=== PATIENT | male | born 1945 | race Caucasian/White ===

== ENCOUNTER 2019-12-16 21:03 | Emergency (ER) | payer MEDICARE, SELFPAY ==
[2019-12-16 21:07] VITALS: BP 152/82; PULSE 92; RESP 18; TEMP 36.7; O2SAT 99
--- NOTE | 2019-12-16 22:01 | ED.SKABFB ---
HPI - Skin/Abscess/Foreign Bdy General Chief complaint: Skin/Abscess/Foreign Body Stated complaint: finger injury Time Seen by Provider: 12/16/19 21:45 Source: patient Mode of arrival: ambulatory Limitations: no limitations History of Present Illness HPI narrative: Patient is a 74-year-old male who presents to the emergency department for a laceration to his left index finger. Patient was using a table saw and sustained a laceration across the dorsal aspect of the left index finger along the region of the distal phalanx and across his nail. Patient cleaned the area with peroxide and applied pressure. He still has some minor bleeding. Tetanus shot is not up-to-date. Patient denies any other injuries or complaints at this time. Patient does report port prior injury with scarring to the dorsal aspect of distal fingers on the left hand many years ago. complaint: laceration Onset (ago): hour(s) Tetanus up to date: no Associated symptoms: denies other symptoms Treatments prior to arrival: bandages Related Data Home Medications Medication Instructions Recorded Confirmed multivitamin 1 tablet PO DAILY 07/19/19 08/16/19 cholecalciferol (vitamin D3) 25 50 mcg PO DAILY tablet 08/16/19 08/16/19 mcg (1,000 unit) tablet insulin syringe-needle U-100 0.3 #10 each 08/16/19 08/16/19 mL 31 gauge x /16 omega-3 fatty acids 1,000 mg 1,000 mg PO DAILY 08/16/19 08/16/19 capsule insulin human U-100 NPH-regulr 20 unit SUB-Q BID 10/26/19 70-30 mix 100 unit/mL subcutaneous susp Allergies Allergy/AdvReac Type Severity Reaction Status Date / Time codeine AdvReac Mild STOMACH Verified 05/31/19 09:11 UPSET Review of Systems Review of Systems: All systems reviewed & are unremarkable except as noted in HPI and below PMFSH Past Medical History Medical History (Updated 12/16/19 @ 22:03 by Hilary Parikh MD) Essential hypertension Hypothyroidism, acquired Pure hypercholesterolemia, unspecified Type 2 diabetes mellitus with hyperglycemia, with long-term current use of insulin Surgical History Surgical History (Updated 12/16/19 @ 22:04 by Hilary Parikh MD) History of colonoscopy History of hernia repair Status post trigger finger release Social History Social History Smoking status: Former smoker Second hand tobacco smoke exposure: No Smoking end date: 08/10/95 Alcohol intake: current Gender identity (if verbalized by the patient): Male Exam Const: General: cooperative, no acute distress and alert Nutritional Appearance: well nourished Orientation/consciousness: patient oriented x3 Limitations: no limitations HENMT: Mouth: Yes lip normal and Yes moist mucous membranes Resp: Effort & Inspection: normal respiratory effort Skin: General skin exam: normal color Neuro: General: patient oriented x3 Cognition (Neuro): normal cognition Speech: normal speech Extrem: General: full ROM and no clubbing, cyanosis or edema Left upper extremity: hand normal ROM of fingers and laceration 2nd digit dorsal aspect distal Details: avulsion (Skin and portion of nail missing from grinding injury), actively bleeding (Mild oozing) and superficial Psych: Mental Status: mental status grossly normal Affect: normal affect Attitude: cooperative Course Course Emergency Course: Patient with skin and nail tissue loss from grinding injury of table saw. No repairable injury at this time. Tetanus shot updated. Dressing applied. Patient advised to follow-up with primary care physician or hand surgeon for further care and close monitoring of his wound healing, especially with his history of diabetes Vital Signs Vital signs: Vital Signs Temperature 98.1 F 12/16/19 21:07 Pulse Rate 92 12/16/19 21:07 Respiratory Rate 18 12/16/19 21:07 Blood Pressure 152/82 H 12/16/19 21:07 Pulse Oximetry 99 12/16/19 21:07 Temperature 98.1 F 0
[2019-12-16] MEDS: TETANUS,DIPHTHERIA,AC PERTUSSIS ADULT (0.5 ML) BOOSTRIX IM (22:08)
== END 2019-12-16 22:34 | disposition home or self-care (01) ==
PROVIDERS: Emergency Provider Emergency Medicine; PCP Internal Medicine
DX: S61.311A Laceration without foreign body of left index finger with damage to nail, initial encounter (principal); Z23 Encounter for immunization; I10 Essential (primary) hypertension; E78.00 Pure hypercholesterolemia, unspecified; E03.9 Hypothyroidism, unspecified; E11.65 Type 2 diabetes mellitus with hyperglycemia; Z79.4 Long term (current) use of insulin; W31.2XXA Contact with powered woodworking and forming machines, initial encounter
CPT/HCPCS: 90471; 90715; 99282

== ENCOUNTER 2020-04-02 00:18 | Outpatient (CLI) | payer MEDICARE, SELFPAY ==
[2020-04-02 19:34] LABS: SARS-CoV-2 RNA PCR Negative
== END 2020-04-02 00:19 | disposition home or self-care (01) ==
LOC: ANHCOVIDDT 00:18
PROVIDERS: PCP Internal Medicine; Visit Provider Internal Medicine Gastroenterology
DX: Z01.812 Encounter for preprocedural laboratory examination (principal); Z20.828 Contact with and (suspected) exposure to other viral communicable diseases
CPT/HCPCS: 87635; C9803; U0003

== ENCOUNTER 2020-04-04 01:26 | Day surgery (SDC) | payer MEDICARE, SELFPAY ==
[2020-03-30 08:51] VITALS: BMI 25.9
--- NOTE | 2020-04-02 14:32 | WPDANESEPPF ---
Anes - Initial Pre Proc Eval Procedure: Operation Date: 04/04/20 07:30 Proposed Procedures p Screening Colonoscopy - Marck Lorenzo MD Date/Time: 04/02/20 14:32 Surgeon: Marck Lorenzo MD Pre Op Diagnosis: Neoplasm Screening Patient Data Age: 74 Gender: M Height: 1.78 m Weight: 81.8 kg Allergies Allergy/AdvReac Type Severity Reaction Status Date / Time codeine AdvReac Mild STOMACH Verified 04/04/20 06:23 UPSET Home Medications Medication Instructions Recorded Confirmed Type multivitamin 1 tablet PO DAILY 07/19/19 04/04/20 History blood sugar diagnostic #300 each 08/16/19 04/04/20 Rx omega-3 fatty acids 1,000 mg 1,000 mg PO DAILY 08/16/19 04/04/20 History capsule ascorbate calcium (vitamin C) 500 500 mg PO DAILY 12/20/19 04/04/20 History mg tablet mecobalamin (vitamin B12) 1,000 1,000 mcg PO DAILY 12/20/19 04/04/20 History mcg chewable tablet levothyroxine 150 mcg tablet 150 mcg PO DAILY 90 Days #90 tablet 03/05/20 04/04/20 Rx cholecalciferol (vitamin D3) 25 5,000 unit PO DAILY tablet 03/15/20 04/04/20 History mcg (1,000 unit) tablet empagliflozin 25 mg tablet 12.5 mg PO QAM tablet 03/15/20 04/04/20 History insulin human U-100 NPH-regulr 15 - 20 unit SUB-Q BID ml 03/15/20 04/04/20 History 70-30 mix 100 unit/mL subcutaneous susp insulin syringe-needle U-100 0.3 #10 each 03/15/20 04/04/20 History mL 31 gauge x 12/23 lovastatin 40 mg tablet 40 mg PO QPM 90 Days #90 tablet 03/15/20 04/04/20 Rx magnesium 250 mg tablet 250 mg PO DAILY 03/15/20 04/04/20 History metformin 500 mg tablet 500 mg PO BID 90 Days #180 tablet 03/15/20 04/04/20 Rx lisinopril 5 mg tablet 5 mg PO DAILY #90 tablet 03/27/20 04/04/20 Rx docusate sodium [Colace] 100 mg PO DAILY 03/30/20 04/04/20 History loratadine [Claritin] 10 mg PO DAILY 03/30/20 04/04/20 History Patient hx anesthesia problems: none Family hx anesthesia problems: none [facility] Social History Social History Smoking status: Former smoker Second hand tobacco smoke exposure: No Smoking end date: 08/10/95 Alcohol intake: current Substance use: never Gender identity (if verbalized by the patient): Male Anes - Eval Final PreProcedure Day of Procedure 04/02/20 14:32 Patient weight: overweight Heart: regular rate and rhythm Lungs: clear to auscultation and normal air movement Airway: Mallampati scale class II Neurological: alert and oriented Last oral intake: >/= 8 hours ASA classification: III Emergent: no Anesthetic plan: proceed Anesthesia type and monitoring: general GIVS and standard monitoring Informed Consent: The patient's anesthetic plan and its attendant risks and benefits were discussed with the patient/family/POA. Questions were solicited and answers provided to the satisfaction of the patient/family/POA.
[2020-04-04 06:20] VITALS: BP 120/60; PULSE 74; RESP 20; TEMP 36.4; O2SAT 100
[2020-04-04] MEDS: LACTATED RINGERS 1,000 ML 150 ML IV CONT (06:41)
[2020-04-04 06:46] LABS: Glucose Point of Care 135 (65-105)
--- NOTE | 2020-04-04 08:05 | WPDGICN ---
Assessment and Plan Assessment and plan (1) Encounter for screening colonoscopy: Code(s): Z12.11 - Encounter for screening for malignant neoplasm of colon Status: Acute Assessment and Plan: Patient appears to be at average risk. Plan is for screening colonoscopy at this time and 10 year intervals in the future. GI Consult Note Consult date/time: 04/04/20 08:05 HPI: Marvin Miller is a 74 year old male seen in evaluation at the Dr Valverde.Patient presents for screening colonoscopy. He states that his current weight appetite bowel movements are normal. He denies abdominal pain. He denies bleeding. His bowel habits are regular and normal. He states previous colonoscopy done years ago was unremarkable. Family history is noncontributory as well. Review of Systems Review of Systems: All systems reviewed & are unremarkable except as noted in HPI and below PMFSH Past Medical History Medical History Essential hypertension Hypothyroidism, acquired Pure hypercholesterolemia, unspecified Type 2 diabetes mellitus with hyperglycemia, with long-term current use of insulin Surgical History Surgical History History of colonoscopy History of hernia repair Status post trigger finger release Family History Family History Mother Patient's mother is Father Patient's father is Acute myocardial infarction Other Cerebrovascular accident Diabetes mellitus Family history of arthritis Family history of cardiovascular disease Family history of glaucoma Hypertension Social History Social History Smoking status: Former smoker Second hand tobacco smoke exposure: No Smoking end date: 08/10/95 Alcohol intake: current Substance use: never Gender identity (if verbalized by the patient): Male Meds Home Medications and Allergies Home Medications Medication Instructions Recorded Confirmed Type multivitamin 1 tablet PO DAILY 07/19/19 04/04/20 History blood sugar diagnostic #300 each 08/16/19 04/04/20 Rx omega-3 fatty acids 1,000 mg 1,000 mg PO DAILY 08/16/19 04/04/20 History capsule ascorbate calcium (vitamin C) 500 500 mg PO DAILY 12/20/19 04/04/20 History mg tablet mecobalamin (vitamin B12) 1,000 1,000 mcg PO DAILY 12/20/19 04/04/20 History mcg chewable tablet levothyroxine 150 mcg tablet 150 mcg PO DAILY 90 Days #90 tablet 03/05/20 04/04/20 Rx cholecalciferol (vitamin D3) 25 5,000 unit PO DAILY tablet 03/15/20 04/04/20 History mcg (1,000 unit) tablet empagliflozin 25 mg tablet 12.5 mg PO QAM tablet 03/15/20 04/04/20 History insulin human U-100 NPH-regulr 15 - 20 unit SUB-Q BID ml 03/15/20 04/04/20 History 70-30 mix 100 unit/mL subcutaneous susp insulin syringe-needle U-100 0.3 #10 each 03/15/20 04/04/20 History mL 31 gauge x 12/23 lovastatin 40 mg tablet 40 mg PO QPM 90 Days #90 tablet 03/15/20 04/04/20 Rx magnesium 250 mg tablet 250 mg PO DAILY 03/15/20 04/04/20 History metformin 500 mg tablet 500 mg PO BID 90 Days #180 tablet 03/15/20 04/04/20 Rx lisinopril 5 mg tablet 5 mg PO DAILY #90 tablet 03/27/20 04/04/20 Rx docusate sodium [Colace] 100 mg PO DAILY 03/30/20 04/04/20 History loratadine [Claritin] 10 mg PO DAILY 03/30/20 04/04/20 History Allergies Allergy/AdvReac Type Severity Reaction Status Date / Time codeine AdvReac Mild STOMACH Verified 04/04/20 06:23 UPSET Vital Signs Vital Signs - 24 hr 04/04/20 06:20 Temperature 97.5 F L Pulse Rate 74 Respiratory Rate 20 Blood Pressure 120/60 Pulse Oximetry 100 Exam Narrative: Exam Narrative: Physical exam reveals Vital Signs to be stable. HEENT exam unremarkable. Patient is anicteric. Lungs are clear to auscultation and percussion. Heart is wi
[2020-04-04 08:10] VITALS: BP 96/62; PULSE 80; RESP 16; O2SAT 100
[2020-04-04 08:20] VITALS: BP 106/63; PULSE 80; RESP 16; O2SAT 100
[2020-04-04 08:30] VITALS: BP 106/62; PULSE 75; RESP 16; O2SAT 100
[2020-04-04 08:32] LABS: Glucose Point of Care 135 (65-105)
== END 2020-04-04 08:48 | disposition home or self-care (01) ==
PROVIDERS: PCP Internal Medicine; Visit Provider Internal Medicine Gastroenterology
PROC: 0DJD8ZZ Inspection of Lower Intestinal Tract, Via Natural or Artificial Opening Endoscopic (ICD-10-PCS; CPT 45378; principal; 2020-04-04 07:30)
DX: Z12.11 Encounter for screening for malignant neoplasm of colon (principal); K64.8 Other hemorrhoids; E11.9 Type 2 diabetes mellitus without complications; E78.00 Pure hypercholesterolemia, unspecified; E03.8 Other specified hypothyroidism; I10 Essential (primary) hypertension; Z87.891 Personal history of nicotine dependence; Z82.3 Family history of stroke; Z82.49 Family history of ischemic heart disease and other diseases of the circulatory system; Z79.4 Long term (current) use of insulin; Z79.899 Other long term (current) drug therapy
CPT/HCPCS: 45378; J2704; J7120

== ENCOUNTER 2020-07-11 14:30 | Outpatient (RCR) | payer MEDICARE, SELFPAY ==
[2020-05-22 08:07] VITALS: BMI 26.1
[2020-05-22 08:12] VITALS: BMI 26.1
== END 2020-07-19 12:50 | disposition home or self-care (01) ==
LOC: ANHDMC 14:30
PROVIDERS: PCP Internal Medicine; Visit Provider Physician Assistant
DX: E11.65 Type 2 diabetes mellitus with hyperglycemia (principal); Z71.89 Other specified counseling; Z71.3 Dietary counseling and surveillance
CPT/HCPCS: 97802; G0108; G0109

== ENCOUNTER 2020-09-26 14:30 | Outpatient (RCR) | payer MEDICARE, SELFPAY ==
[2020-08-21 09:49] VITALS: BMI 25.9
[2020-08-21 09:50] VITALS: BMI 25.9
== END 2020-11-05 14:01 | disposition home or self-care (01) ==
LOC: ANHDMC 14:30
PROVIDERS: PCP Internal Medicine; Visit Provider Physician Assistant
DX: E11.65 Type 2 diabetes mellitus with hyperglycemia (principal); Z71.3 Dietary counseling and surveillance; Z71.89 Other specified counseling
CPT/HCPCS: 97803; G0109

== ENCOUNTER 2020-12-05 10:27 | Outpatient (RCR) | payer MEDICARE, SELFPAY | END 2020-12-11 16:39 | disposition home or self-care (01) | LOC: ANHDMC 10:27 | PROVIDERS: PCP Internal Medicine; Referring Provider Internal Medicine Endocrinology, Diabetes & Metabolism; Visit Provider Physician Assistant | DX: E11.65 Type 2 diabetes mellitus with hyperglycemia (principal); Z71.89 Other specified counseling | CPT/HCPCS: G0108 ==

== ENCOUNTER → 2021-06-12 02:40 | Outpatient (CLI) | payer MEDICARE, SELFPAY ==
[2021-06-12 17:30] LABS: SARS-CoV-2 RNA PCR Negative
== END ==
PROVIDERS: PCP Internal Medicine; Visit Provider Internal Medicine
DX: B34.9 Viral infection, unspecified (principal); Z20.822 Contact with and (suspected) exposure to COVID-19
CPT/HCPCS: C9803; U0003; U0005

== ENCOUNTER 2021-08-19 15:54 | Outpatient (CLI) | payer MEDICARE, SELFPAY ==
[2021-08-19 17:50] LABS: SARS-CoV-2 RNA PCR Positive (Negative)
== END 2021-08-19 15:55 | disposition home or self-care (01) ==
LOC: CHSLAB 15:56
PROVIDERS: PCP Internal Medicine; Visit Provider Physician Assistant
DX: U07.1 COVID-19 (principal); R68.89 Other general symptoms and signs
CPT/HCPCS: C9803; U0003; U0005

== ENCOUNTER 2022-02-20 12:24 | Emergency (ER) | payer MEDICARE, SELFPAY ==
--- NOTE | 2022-02-20 12:31 | ED.EAR ---
HPI - Ear Problem General Chief complaint: Ear Stated complaint: Foreign object in ear Time Seen by Provider: 02/20/22 12:32 Source: patient and RN notes reviewed Mode of arrival: ambulatory Limitations: no limitations History of Present Illness HPI Narrative: 76-year-old male presents to the [facility] with a piece of his hearing aid stuck in his ear. Related Data Home Medications Medication Instructions Recorded Confirmed multivitamin (Multiple Vitamins 1 tablet PO DAILY 07/19/19 02/20/22 tablet) omega-3 fatty acids 1,000 mg 1,000 mg PO DAILY 08/16/19 02/20/22 capsule (Fish Oil Concentrate) ascorbate calcium (vitamin C) 500 500 mg PO DAILY 12/20/19 02/20/22 mg tablet mecobalamin (vitamin B12) 1,000 1,000 mcg PO DAILY 12/20/19 02/20/22 mcg chewable tablet cholecalciferol (vitamin D3) 25 5,000 unit PO DAILY 03/15/20 02/20/22 mcg (1,000 unit) tablet insulin human U-100 NPH-regulr 15 - 20 unit subcut BID 03/15/20 02/20/22 70-30 mix 100 unit/mL subcutaneous susp (Novolin 70/30 U-100 Insulin) magnesium 250 mg tablet 250 mg PO DAILY 03/15/20 02/20/22 docusate sodium 100 mg capsule 100 mg PO DAILY 03/30/20 02/20/22 (Colace) loratadine 10 mg tablet (Claritin) 10 mg PO DAILY 03/30/20 02/20/22 Allergies Allergy/AdvReac Type Severity Reaction Status Date / Time codeine AdvReac Mild STOMACH Verified 02/20/22 12:32 UPSET Review of Systems Review of Systems: All systems reviewed & are unremarkable except as noted in HPI and below Constitutional: Constitutional: Reports no additional constitutional complaints, Denies chills and Denies fever(s) Eyes: Eyes: Reports no additional eye complaints ENT: Reports as per HPI Cardiovascular: Cardiovascular: Reports no additional cardiovascular complaints Respiratory: Respiratory: Reports no additional respiratory complaints Gastrointestinal: Gastrointestinal: Reports no additional gastrointestinal complaints Musculoskeletal: Musculoskeletal: Reports no additional musculoskeletal complaints Integumentary/Breasts: Skin/Breast: Reports system reviewed and no additional complaints, except as docu Neurologic: Reports system reviewed and no additional complaints, except as documented Psychiatric: Psychiatric: Reports no additional psychiatric complaints Allergic/Immunologic: Allergic/Immunologic: Reports no additional allergic/immunologic complaints [facility] Past Medical History Medical History Benign prostatic hyperplasia with urinary obstruction Calcification of right carotid artery Cataract, left eye Cataract, right eye Decreased hearing of both ears Essential hypertension Hypothyroidism, acquired Peripheral neuropathy Pure hypercholesterolemia, unspecified Type 2 diabetes mellitus with hyperglycemia, with long-term current use of insulin Surgical History Surgical History History of colonoscopy History of eye surgery right eye 11/12/21, cataracts left eye History of hernia repair Status post trigger finger release Family History Family History Mother Patient's mother is Father Patient's father is Acute myocardial infarction Other Cerebrovascular accident Diabetes mellitus Family history of arthritis Family history of cardiovascular disease Family history of glaucoma Hypertension Social History Social History Smoking status: Former smoker Second hand tobacco smoke exposure: No Smoking end date: 08/10/95 Alcohol intake: current Drinks per week: 4 Alcohol use details: Beer Substance use: never Gender identity (if verbalized by the patient): Male Spiritual care concerns: No Comments At the time of my signature, I reviewed and agree with the nursing past medical, garza
[2022-02-20 12:32] VITALS: BP 95/62; PULSE 78; RESP 16; TEMP 36.6; O2SAT 100
== END 2022-02-20 12:42 | disposition home or self-care (01) ==
PROVIDERS: Emergency Provider Nurse Practitioner; PCP Internal Medicine
DX: T16.2XXA Foreign body in left ear, initial encounter (principal); X58.XXXA Exposure to other specified factors, initial encounter; Z87.891 Personal history of nicotine dependence; I10 Essential (primary) hypertension; E03.9 Hypothyroidism, unspecified; E78.00 Pure hypercholesterolemia, unspecified; E11.42 Type 2 diabetes mellitus with diabetic polyneuropathy; I65.21 Occlusion and stenosis of right carotid artery; N40.0 Benign prostatic hyperplasia without lower urinary tract symptoms
CPT/HCPCS: 69200; 99212; G0463

== ENCOUNTER 2022-07-25 13:25 | Outpatient (CLI) | payer MEDICARE, SELFPAY ==
[2022-07-25 15:04] LABS: Influenza A QL RT-PCR Negative (Negative); Influenza B QL RT-PCR Negative (Negative)
== END 2022-07-25 13:26 | disposition home or self-care (01) ==
LOC: ANHLAB 13:27
PROVIDERS: PCP Internal Medicine; Visit Provider Internal Medicine
DX: R50.9 Fever, unspecified (principal)
CPT/HCPCS: 87502

== ENCOUNTER 2022-10-13 09:17 | Outpatient (CLI) | payer MEDICARE, SELFPAY ==
--- NOTE | 2022-11-03 16:10 | WPDSLEEPSTUD ---
Sleep Study Date of Study: 10/13/22 Ordering Provider: Aiden Valverde DO Interpreting Physician: Bev Cortez DO Sleep Study Type: Split Polysomnogram Height: 1.78 m Weight: 78.018 kg Body Mass Index: 24.7 Neck Circumference (inches): 15 [place]: 8 Reason for Sleep Study Daytime hypersomnia Sleep History The patient is a 76-year-old male with hypertension, hypothyroidism, peripheral neuropathy, hyperlipidemia, type 2 diabetes, benign prostatic hyperplasia and history of tobacco use that had a sleep study ordered by his primary care physician for evaluation of sleep apnea. The patient denies awakening from sleep short of breath. He rarely awakens at night with heartburn, belching or cough. He occasionally snores but it is never loud enough that others complain. He denies having trouble sleeping when he has a cold. He denies waking up gasping for air throughout the night. He denies having breathing problems at night observed by himself or others. He rarely sweats excessively at night. He denies having heart palpitations or irregular heartbeats during the night. He frequently falls asleep during the day but never while driving. He denies sleep paralysis, cataplexy and hypnagogic / hypnopompic hallucinations. He denies having trouble at school or work due to sleepiness. He denies feeling afraid of going to sleep. He denies having nightmares. He occasionally remembers his dreams. He rarely has thoughts racing through his mind. He occasionally feels sad or depressed. He rarely has anxiety. He rarely has muscular tension. He denies noticing parts of his body jerk. He denies kicking during the night. He occasionally has crawling and aching feelings in his legs and occasionally has leg pain during the night. He denies grinding his teeth during sleep and denies awakening with morning jaw pain. He is rarely bothered by pain during the day but frequently awakened by pain during the night. He frequently wakes up feeling stiff in the morning. He occasionally wakes up with sore or achy muscles. He frequently wakes up with pain in the neck, spine or other joints. He goes to bed between 11:00 p.m. to midnight on both weekdays and weekends. He is able to fall asleep immediately. He wakes up once throughout the night to urinate and is able to fall back asleep immediately. He wakes up at 5:00 a.m. on both weekdays and weekends. He typically gets 7 hours of sleep per night. He does not stay in bed after waking up in the morning. He currently lives with his . He does not consume any caffeinated beverages within 2 hours of bedtime. He does not engage in physical exercise before bedtime. He will watch television before falling asleep. He will take naps in the afternoon or the evening and they are refreshing. He drinks 16 oz of caffeinated beverage per day. He is a former smoker. He denies alcohol and recreational drug use. [facility] Past Medical History Medical History Benign prostatic hyperplasia with urinary obstruction Calcification of right carotid artery Cataract, left eye Cataract, right eye Decreased hearing of both ears Essential hypertension Hypothyroidism, acquired Peripheral neuropathy Pure hypercholesterolemia, unspecified Type 2 diabetes mellitus with hyperglycemia, with long-term current use of insulin Surgical History Surgical History History of colonoscopy History of eye surgery right eye 11/12/21, cataracts left eye History of hernia repair Status post trigger finger release Family History Family History Mother Patient's mother is Father Patient's father is Acute myocardial infarction Other Cerebrovascular accident Diabetes mellitus Family history of arthritis Family history of cardiovas
[2022-11-03 16:25] VITALS: BMI 24.7
== END 2022-10-14 07:25 | disposition home or self-care (01) ==
LOC: ANHCSM 09:18
PROVIDERS: PCP Internal Medicine; Visit Provider Internal Medicine
DX: G47.00 Insomnia, unspecified (principal); G47.33 Obstructive sleep apnea (adult) (pediatric)
CPT/HCPCS: 95811

== ENCOUNTER 2022-11-11 13:30 | Outpatient (CLI) | payer MEDICARE, SELFPAY ==
--- NOTE | 2022-11-11 13:47 | ECHO_ITS ---
Patient Info Name: Marvin Miller Age: 76 years : 1945 Gender: Male Ht: 70 in Wt: 168 lbs BSA: 1.95 m2 HR: 79 bpm BP: 106 / 70 mmHg Technical Quality: Good Exam Date: 11/11/2022 2:13 PM Exam Location: [facility] Patient Status: Outpatient Admit Date: 11/11/2022 Staff Ordering Physician: Esteban Alva DO Goldbeater: Ladi Tadeo RDCS Attending Provider: Esteban Alva DO Referring Physician: Artie COFFMAN; Exam Type: CA echo doppler color flow Study Info Indications I10 - Essential (primary) hypertension Complete two-dimensional, color flow and Doppler transthoracic echocardiogram is performed. Summary 1. Complete two-dimensional, color flow and Doppler transthoracic echocardiogram is performed. 2. Left ventricular chamber dimension is normal. 3. Left ventricular systolic function is normal, estimated at 60-65%. 4. The left ventricular diastolic function is grade II diastolic dysfunction. 5. E/e' 11 is mildly elevated. 6. Global longitudinal strain is slightly abnormal at -16.9%. 7. There is mild aortic valve sclerosis. 8. No pulmonary hypertension, estimated pulmonary arterial systolic pressure is 24 mmHg. Left Ventricle E/e' 11 is mildly elevated. Global longitudinal strain is slightly abnormal at -16.9%. Left ventricular chamber dimension is normal. Left ventricular systolic function is normal, estimated at 60-65%. The left ventricular diastolic function is grade II diastolic dysfunction. Right Ventricle Right ventricular chamber dimension is normal. Right ventricular systolic function is normal. Left Atria Left atrial chamber dimension is normal. Right Atria Right atrial chamber dimension is normal. Aortic Valve The aortic valve is trileaflet. There is mild aortic valve sclerosis. There is no aortic valve stenosis. There is no aortic valve regurgitation. Pulmonic Valve There is no pulmonic regurgitation. Mitral Valve There is no mitral valve stenosis. There is no mitral valve regurgitation. Tricuspid Valve There is no tricuspid valve regurgitation. No pulmonary hypertension, estimated pulmonary arterial systolic pressure is 24 mmHg. Pericardium/Pleural There is no pericardial effusion. Inferior Vena Cava Normal inferior vena cava with >50% collapse upon inspiration consistent with normal right atrial pressure, 5 mmHg. Aorta The aortic root size at the sinus of Valsalva is normal. Left Ventricular Outflow Tract Name Value Normal LVOT 2D LVOT Diameter 2.0 cm LVOT Doppler LVOT Peak Gradient 4 mmHg LVOT Mean Gradient 3 mmHg LVOT VTI 22 cm LVOT VTI/AV VTI Ratio 1.0 LVOT Stroke Volume 70 ml LVOT CO 5.2 l/min LVOT CI 2.7 l/min/m2 Pulmonic Valve Name Value Normal
== END 2022-11-11 13:31 | disposition home or self-care (01) ==
PROVIDERS: PCP Internal Medicine; Visit Provider Internal Medicine Cardiovascular Disease
DX: I10 Essential (primary) hypertension (principal)
CPT/HCPCS: 93306

== ENCOUNTER 2024-02-29 14:36 | Outpatient (CLI) | payer MEDICARE, SELFPAY ==
--- NOTE | ~2024-02-29 | XR_ITS ---
3 VIEWS LUMBAR SPINE Ordering provider: Shalom Vaughn DO History: . RT SIDE LOW BACK PAIN AFTER FALL 1 WK AGO, RADIATES TO LEFT . Comparison: None. FINDINGS: VERTEBRAL BODIES: No visible fracture or subluxation. Degenerative changes of the spine. DISK SPACES: Normal. SOFT TISSUES: Vascular calcifications. IMPRESSION: No acute osseous abnormality lumbar spine. Reviewed, dictated and finalized at location A.
== END 2024-02-29 14:37 | disposition home or self-care (01) ==
PROVIDERS: PCP Internal Medicine; Visit Provider Internal Medicine
DX: M54.50 Low back pain, unspecified (principal)
CPT/HCPCS: 72100

== ENCOUNTER 2024-05-12 12:48 | Outpatient (CLI) | payer MEDICARE, SELFPAY ==
--- NOTE | ~2024-05-12 | XR_ITS ---
Left Shoulder Technique: AP and scapular Y views were obtained. Clinical History: Arthritis Findings: No fracture or dislocation is seen. Osseous alignment is anatomic. The glenohumeral joint i s intact. There is mild AC joint degenerative change. Soft tissues are unremarkable. Impression: Mild AC joint degenerative change. Reviewed, dictated and finalized at [facility]. Impression: Mild AC joint degenerative change.
--- NOTE | ~2024-05-12 | XR_ITS ---
Right Shoulder Technique: AP and scapular Y views were obtained. Clinical History: Arthritis Findings: No fracture or dislocation is seen. Osseous alignment is anatomic. The glenohumeral and acr omioclavicular joint spaces are preserved. Soft tissues are unremarkable. Impression: Unremarkable right shoulder radiographs. Reviewed, dictated and finalized at [facility]. Impression: Unremarkable right shoulder radiographs.
== END 2024-05-12 12:49 | disposition home or self-care (01) ==
PROVIDERS: PCP Internal Medicine; Visit Provider Orthopaedic Surgery
DX: M19.012 Primary osteoarthritis, left shoulder (principal); M19.011 Primary osteoarthritis, right shoulder
CPT/HCPCS: 73030

== ENCOUNTER 2025-02-02 13:45 | Outpatient (CLI) | payer MEDICARE, SELFPAY ==
--- NOTE | ~2025-02-02 | US_ITS ---
Ankle Brachial Index with Ultrasound Dopplers and Pulse Volume Recordings Technique: Pressures in the arm and lower extremity were obtained. Additionally, arterial and pulse v olume waveforms were obtained bilaterally. Findings: Segmental pressures Right upper thigh: 120 Right lower thigh: 82 Right calf: 116 Right posterior tibial: 69 Right dorsalis pedis: 63 Left upper thigh: 184 Left lower thigh: 148 Left calf: 113 Left posterior tibial: 110 Left dorsalis pedis: 101 Spectral broadening is detected bilaterally. Primarily biphasic waveforms are noted. AMAYA Right 0.63 Left 1.00 TBI Right 0.41 Left 0.56 Impression: Given that this patient has diabetes, while the AMAYA demonstrates moderate peripheral gladis rial disease on the right but normal vascularity on the left, the TBI was also interrogated. The TBI bilaterally in this patient are abnormal, demonstrating worse disease in the right lower extr emity than the left, without severe peripheral arterial disease. Reviewed, dictated and finalized at location A. Impression: Given that this patient has diabetes, while the AMAYA demonstrates mo derate peripheral arterial disease on the right but normal vascularity on the l eft, the TBI was also interrogated. The TBI bilaterally in this patient are abnormal, demonstrating worse disease i n the right lower extremity than the left, without severe peripheral arterial d isease.
== END 2025-02-02 13:46 | disposition home or self-care (01) ==
PROVIDERS: PCP Internal Medicine; Visit Provider Internal Medicine Endocrinology, Diabetes & Metabolism
DX: I73.9 Peripheral vascular disease, unspecified (principal); M79.669 Pain in unspecified lower leg
CPT/HCPCS: 93923

== ENCOUNTER 2025-04-17 12:39 | Outpatient (CLI) | payer MEDICARE, SELFPAY ==
--- NOTE | ~2025-04-17 | MR_ITS ---
EXAMINATION: MR brain/brain stem wo con DATE: 04/17/2025 13:20 INDICATION: Other amnesia. TECHNIQUE: Magnetic resonance imaging (MRI) of the brain and brainstem was performed without intravenous contrast. COMPARISON: None. FINDINGS: There are scattered areas of nonspecific increased T2-weighted signal intensity in the cerebral white matter. There is no intracranial hemorrhage, acute infarction, or abnormal intracranial mass lesion. The ventricles are normal in size. There is mucosal thickening in the paranasal sinuses and dependent fluid in left maxillary sinus. There are likely changes of ocular lens replacement surgeries. The mastoid air cells are normal. IMPRESSION: 1. Moderate nonspecific cerebral white matter disease, which likely represents chronic small vessel ischemic disease. Reviewed, dictated and finalized at location E.
== END 2025-04-17 12:40 | disposition home or self-care (01) ==
LOC: GOSHIMG 12:40
PROVIDERS: PCP Internal Medicine; Visit Provider Internal Medicine
DX: R41.3 Other amnesia (principal); R90.82 White matter disease, unspecified
CPT/HCPCS: 70551